=== PATIENT | female | born 1995 | race Caucasian/White ===

== ENCOUNTER 2018-07-23 20:48 | Emergency (ER) | payer SELFPAY ==
[~2018-07-23] VITALS: Ht 165.1 cm; Wt 54.4 kg
[2018-07-23 21:26] VITALS: BP_SYST 135
--- NOTE | 2018-07-23 22:08 | NUR ---
Pt c/o abdominal pain with nausea since this afternoon. Pt states that she had 6 shots of Fire Ball and Vodka at 22:00 last night. Pt states she was fine this AM. Roommate at bedside.
--- NOTE | 2018-07-23 22:08 | NUR ---
Patient to ER bed 3 to gown for evaluation. Side rails up. Report given to TIM Rodriguez.
--- NOTE | 2018-07-23 22:15 | NUR ---
# 20 gauge angiocath placed to RAC. Use of asceptic technique. Opsite placed over site. Blood return noted. Blood for lab drawn from site. Flushed with 10 cc of normal saline. No evidence of infiltration noted. Patient tolerated well.
[2018-07-23] MEDS ORDERED: ONDANSETRON HCL 4 MG/2 ML VIAL ONE (22:38)
[2018-07-23] MEDS ORDERED: ONDANSETRON HCL 4 MG/2 ML VIAL IVP ONE (23:15)
--- NOTE | 2018-07-23 23:33 | NUR ---
Dr. Moody at bedside.
[2018-07-23] MEDS ORDERED: NACL 0.9% 1,000 ML IV ONE (23:45)
[2018-07-23 23:57] LABS: BILIRUBIN,URINE NEGATIVE (NEGATIVE); BLOOD, URINE NEGATIVE (NEGATIVE); CLARITY/URINE CLEAR (CLEAR); COLOR,URINE YELLOW (YELLOW); GLUCOSE,URINE NEGATIVE (NEGATIVE); KETONES,URINE 3+ (NEGATIVE); LEUKOCYTE ESTERASE ,URINE NEGATIVE (NEGATIVE); NITRITE, URINE NEGATIVE (NEGATIVE); PROTEIN URINE 1+ (NEGATIVE); UROBILINOGEN,URINE 0.2 (0.2-1.0)
[2018-07-24 00:09] LABS: HEMATOCRIT 39.7 % (36-48); HEMOGLOBIN 12.8 g/dL (12.0-16.0); RED BLOOD CELL COUNT(AUTO) 4.63 MIL/uL (4.2-6.2); WHITE BLOOD COUNT (AUTO) 14.6 K/uL (4.8-10.8)
[2018-07-24 00:10] LABS: BASOPHILS % (AUTO) 0.5 % (0.0-2.0); EOSINOPHILS % (AUTO) 0.3 % (0.0-4.0); LYMPHOCYTES % (AUTO) 6.1 % (20.5-51.5); MEAN CORPUSCULAR HEMOGLOBIN 28 pg (27-31); MEAN CORPUSCULAR HGB CONC 32 % (32-36); MEAN CORPUSCULAR VOLUME 86 fL (79.0-98.0); MONOCYTES % (AUTO) 4.3 % (1.7-9.3); NEUTROPHILS % (AUTO) 88.8 % (40.0-70.0); PLATELET COUNT (AUTO) 271 K/uL (130-430); RED CELL DISTRIBUTION WIDTH 13.9 % (9.0-15.0)
[2018-07-24 00:11] LABS: BASOPHILS # (AUTO) 0.1 K/uL (0.0-0.2); LYMPHOCYTES # (AUTO) 0.9 K/uL (1.0-5.5); MONOCYTES # (AUTO) 0.6 K/uL (0.0-1.0)
[2018-07-24 00:12] LABS: ANION GAP 17 (5-15); CALCIUM 9.8 mg/dL (8.4-11.0); CHLORIDE 101 mmol/L (98-107); CREATININE 1.02 mg/dL (0.55-1.30); GLUCOSE 135 mg/dL (70-99); POTASSIUM 3.8 mmol/L (3.5-5.1); SODIUM SERUM 139 mmol/L (136-145); UREA NITROGEN, BLOOD 13 mg/dL (8-21)
[2018-07-24 00:14] LABS: BARBITURATE, URINE NEGATIVE (NEG <=200)
[2018-07-24 00:15] LABS: URINE AMPHETAMINE NEGATIVE (NEG <=500)
[2018-07-24 00:16] LABS: BENZODIAZEPINE, URINE NEGATIVE (NEG <=150); CANNABINOID, URINE POSITIVE (NEG <=50); COCAINE, URINE POSITIVE (NEG <=150); METHAMPHETAMINES SCREEN,URINE NEGATIVE (NEG <=500); OPIATE, URINE NEGATIVE (NEG <=100); PHENCYCLIDINE SCREEN,URINE NEGATIVE (NEG <=25); UR TRICYCLIC ANTIDEPRESSANTS NEGATIVE (NEG <=300); URINE METHADONE NEGATIVE (NEG <=200); URINE OXYCODONE SCREEN NEGATIVE (NEG <=100); URINE PROPOXYPHENE SCREEN NEGATIVE (NEG <=300)
[2018-07-24 00:19] LABS: ALANINE AMINOTRANSFERASE 59 U/L (12-78); ALBUMIN 4.6 g/dL (3.4-4.8); ALCOHOL, BLOOD < 3 mg/dL (<10); ASPARTATE AMINOTRANSFERASE 66 U/L (10-37); GFR AFRICAN AMERICAN 88 mL/min (>90); TOTAL BILIRUBIN 0.6 mg/dL (0.0-1.0)
--- NOTE | 2018-07-24 00:20 | NUR ---
Pt actively vomiting, ~400 mL green tinged emesis to bag. Dr. Moody notified. Pt states that she drank a full bottle of water during her stay her. Instructed pt to not drink anymore fluids. Ice chips provided.
[2018-07-24] MEDS ORDERED: ONDANSETRON HCL 4 MG/2 ML VIAL IVP ONE (00:30)
--- NOTE | 2018-07-24 01:03 | NUR ---
Gwen dangelo in ED - 07/24/18 at 0106 by [email or web address] Pt to CT via stretcher.
--- NOTE | 2018-07-24 01:03 | NUR ---
CT attempted to take pt for imaging. Pt continues to wretch. Dr. Moody notified.
[2018-07-24] MEDS ORDERED: PROMETHAZINE HCL 25 MG/ML AMP IVP ONE (01:15)
--- NOTE | 2018-07-24 01:20 | NUR ---
Pt to CT via stretcher. Pt resting quietly, NAD s/p administration of Phenergan.
[2018-07-24] MEDS ORDERED: IOHEXOL 100 ML IV ONE (01:30)
--- NOTE | 2018-07-24 01:40 | NUR ---
Pt returns from CT. NAD.
--- NOTE | 2018-07-24 02:32 | NUR ---
Pt resting quietly, NAD, no further wretching or vomiting.
[2018-07-24 02:55] VITALS: BP_SYST 128
--- NOTE | 2018-07-24 02:55 | NUR ---
Patient given written and verbal discharge instructions and verbalizes understanding. ER MD discussed with patient the results and treatment provided. Patient in stable condition. ID arm band removed. IV catheter removed intact and dressing applied, no active bleeding. No Rx given. Patient educated on pain management and to follow up with PMD. Pain Scale 2/10. Opportunity for questions provided and answered. Medication side effect fact sheet provided.
== END 2018-07-24 02:55 | disposition home or self-care (01) ==
LOC: SED 20:48
DX: F19.90 Other psychoactive substance use, unspecified, uncomplicated (principal); R11.2 Nausea with vomiting, unspecified; J45.909 Unspecified asthma, uncomplicated
CPT/HCPCS: 36415; 74177; 80053; 80307; 81003; 81025; 85025; 96361; 96374; 96375; 96376; 99284; G0482; J2405 ×2; J2550; J7030; Q9967